=== PATIENT | female | born 2000 | race African-American/Black ===

== ENCOUNTER 2022-11-10 21:17 | Emergency (ER) | payer MEDICAID ==
[~2022-11-10] VITALS: Ht 172.7 cm; Wt 69.9 kg
[2022-11-10 21:24] VITALS: BP_SYST 123
--- NOTE | 2022-11-10 22:14 | NUR ---
Patient to ER bed 06 to gown for evaluation. Side rails up. Report given to MATT DESAI.
--- NOTE | 2022-11-10 22:25 | NUR ---
Received report from MATT Paulino; assuming care of patient at this time.
--- NOTE | 2022-11-10 22:30 | NUR ---
Patient presents to ED from home with c/o possible yeast infection x1week. Patient reports pain 0/10 at this time. Patient states "I feel fine, but I started having sex with a new partner this week and I noticed that after the two times it hurt a little bit." Denies vaginal discharge/bleeding, itching, or pain at this time. Patient A/Ox4, VSS, ambulatory, skin warm, dry, intact, skin warm, dry, intact, color wnl for ethnicity. Nad noted at this time. ER MD Brandon made aware.
--- NOTE | 2022-11-10 22:45 | NUR ---
IRISH Brandon at bedside.
[2022-11-10 22:54] LABS: BILIRUBIN,URINE NEGATIVE (NEGATIVE); COLOR,URINE YELLOW (YELLOW); GLUCOSE,URINE NEGATIVE (NEGATIVE); KETONES,URINE NEGATIVE (NEGATIVE); LEUKOCYTE ESTERASE ,URINE 2+ (NEGATIVE); NITRITE, URINE NEGATIVE (NEGATIVE); PROTEIN URINE NEGATIVE (NEGATIVE); UROBILINOGEN,URINE 0.2 (0.2-1.0)
[2022-11-10] MEDS ORDERED: cefTRIAXone 500 MG in LIDOCAINE 1%, 20 ML MDV 1 ML IM ONE (23:00)
[2022-11-10 23:09] LABS: BLOOD, URINE TRACE (NEGATIVE); CLARITY/URINE HAZY (CLEAR)
[2022-11-10 23:18] LABS: BACTERIA,URINE MANY /HPF (None Seen); WBC,URINE 20-50 /HPF (0-3); YEAST,URINE Few /HPF (None Seen)
--- NOTE | 2022-11-10 23:30 | NUR ---
ER MD Brandon performing vaginal exam with RN at bedside.
[2022-11-10] MEDS ORDERED: DOXY100C5 PO (23:43)
[2022-11-10] MEDS ORDERED: CEPH-548 PO (23:43)
[2022-11-10] MEDS ORDERED: GYNECR VG (23:43)
[2022-11-11 00:05] VITALS: BP_SYST 125
--- NOTE | 2022-11-11 00:05 | NUR ---
Patient given written and verbal discharge instructions and verbalizes understanding. ER MD discussed with patient the results and treatment provided. Patient in stable condition. ID arm band removed. Rx of Cephalein, Doxycycline, and Clotrimazole cream given. Patient educated on pain management and to follow up with PMD. Pain Scale 0/10. Opportunity for questions provided and answered. Medication side effect fact sheet provided. Patient A/Ox4, VSS, ambulatory, resp even and unlabored. Patient in stable condition and accompanied by self upon discharge.
== END 2022-11-11 00:05 | disposition home or self-care (01) ==
LOC: SED 21:17
DX: N39.0 Urinary tract infection, site not specified (principal); B37.31 Acute candidiasis of vulva and vagina; Z86.19 Personal history of other infectious and parasitic diseases; Z79.899 Other long term (current) drug therapy
CPT/HCPCS: 99284; 81000; 87086; 87210; 36415; 81025; 96372; 87491; J0696

== ENCOUNTER 2022-11-14 12:39 | Emergency (ER) | payer MEDICAID ==
[~2022-11-14] VITALS: Ht 167.6 cm; Wt 69.9 kg
[~2022-11-14 12:39] MED LIST: CEPH-548 PO; DOXY100C5 PO; GYNECR VG
[2022-11-14 12:40] VITALS: BP_SYST 112
[2022-11-14] MEDS ORDERED: DIPH25CA83 PO (13:40)
== END 2022-11-14 13:55 | disposition home or self-care (01) ==
LOC: SED 12:39
DX: L25.9 Unspecified contact dermatitis, unspecified cause (principal); T49.0X5A Adverse effect of local antifungal, anti-infective and anti-inflammatory drugs, initial encounter; Z79.899 Other long term (current) drug therapy; Y92.89 Other specified places as the place of occurrence of the external cause; X58.XXXA Exposure to other specified factors, initial encounter
CPT/HCPCS: 99283